=== PATIENT | female | born 1980 | race Two or more races ===

== ENCOUNTER 2024-06-18 06:27 | Day surgery (SDC) | payer OTHER, SELFPAY | END 2024-06-18 13:35 | disposition home or self-care (01) | LOC: GI 06:27 | PROVIDERS: ATTENDING PHYSICIAN Internal Medicine Gastroenterology | DX: K64.8 Other hemorrhoids (principal); K63.89 Other specified diseases of intestine; K63.5 Polyp of colon; K55.20 Angiodysplasia of colon without hemorrhage; K92.1 Melena; R12 Heartburn; K44.9 Diaphragmatic hernia without obstruction or gangrene; K31.7 Polyp of stomach and duodenum; R76.8 Other specified abnormal immunological findings in serum; K52.89 Other specified noninfective gastroenteritis and colitis | CPT/HCPCS: 45385; 45380; 43239; 88305 ==